=== PATIENT | female | born 2000 | race American Indian/Alaskan Native ===

== ENCOUNTER 2021-01-25 02:04 | Outpatient (CLI) | payer SELFPAY ==
[2021-01-25] MEDS ORDERED: LACTATED RINGERS 1,000 ML IV ONE (02:22)
[2021-01-25 02:23] VITALS: BP 97/62
[2021-01-25 02:55] LABS: Amphetamine Screen,Urine Negative; Benzodiazepines Screen,Urine Negative; Bilirubin,Urine NEG (Negative); Blood,Urine NEG (Negative); Cannabinoid Screen,Urine Negative; Cocaine Screen,Urine Negative; Color,Urine Straw (Yellow); Methadone Screen,Urine Negative; Opiate Screen,Urine Negative; Protein,Urine <15 mg/dL mg/dL (Negative); Urobilinogen,Urine < 2.0 mg/dL (<2.0)
== END 2021-01-25 04:00 | disposition home or self-care (01) ==
LOC: TRG 02:04 → APU 02:07 → TRG 04:00
PROVIDERS: ATTEND Obstetrics & Gynecology
DX: O26.893 Other specified pregnancy related conditions, third trimester (principal); R10.9 Unspecified abdominal pain; Z3A.29 29 weeks gestation of pregnancy; Z79.899 Other long term (current) drug therapy
CPT/HCPCS: 59025; 80307; 81001; 96360; J7120